=== PATIENT | male | born 1955 | race African-American/Black ===

== ENCOUNTER 2016-08-05 18:07 | Observation (INO) | payer MEDICARE, MEDICAID ==
[~2016-08-05] VITALS: Ht 194.3 cm; Wt 205.5 kg
[~2016-08-05 18:07] MED LIST: BACTRIM DS TABL1 TAB PO; BAYER CHEWABLE81 MG PO; CHLOROTHIAZIDE500 MG PO; CLEOCIN HCL300 MG PO; COLACE100 MG PO; CORDARONE200 MG PO; COREG 3.1253.125 MG PO; DULCOLAX5 MG PO; ENDOCET 10-3251 TAB PO; FERROUS SULFAT325 MG PO; FLORANEX / LACT1 TAB PO; FLORINEF 0.1 M0.1 MG PO; GLUCOTROL ER2.5 MG PO; IPRAT-ALBUT 0.5-3 ML UPD; K-DUR20 MEQ PO; LASIX INJ40 MG/4 ML PO; LASIX40 MG PO; LEVAQUIN500 MG PO; LIDODERM 5 %1 PATCH TD; LISINOPRIL5 MG PO; LOVENOX40 MG/0.4 SQ; MUCINEX DM ER1 EAC1 PO; MYLANTA LIQUID355 ML PO; OMNICEF300 MG PO; PAXIL10 MG PO; PROTONIX40 MG PO; PULMICORT0.5 MG/21 UPD; SYNTHROID125 MCG PO; SYNTHROID300 MCG PO; ULTRAM50 MG PO; ZAROXOLYN5 MG PO; [UNRECOGNIZED DRUG - OTHER]
[2016-08-05 19:32] LABS: BASOPHILS 0.2 % (0.0-2.0); HEMATOCRIT 31.8 % (42.0-54.0); IMMATURE GRANULOCYTES 0.4 % (0-5); MCH 24.9 pg (26.0-34.0); MCHC 31.4 g/dL (31.0-37.0); MCV 79.3 fL (80.0-100.0); MEAN PLATELET VOLUME 11.4 fL (7.4-10.4); MONOCYTES 10.5 % (2-11); NEUTROPHILS 72.9 % (40-80); RBC 4.01 10x6/uL (4.20-6.10); RDW 16.2 % (11.5-14.5); WBC 5.6 10x3/uL (4.8-10.8)
[2016-08-05 19:38] LABS: APPEARANCE CLEAR (CLEAR); BILIRUBIN NEGATIVE (NEGATIVE); COLOR YELLOW (YELLOW); GLUCOSE NEGATIVE (NEGATIVE); KETONE NEGATIVE (NEGATIVE); LEUKOCYTE ESTERASE NEGATIVE (NEGATIVE); NITRITE NEGATIVE (NEGATIVE); PROTEIN NEGATIVE (NEGATIVE); UROBILINOGEN NORMAL (NORMAL)
[2016-08-05 19:47] LABS: ALBUMIN 2.3 g/dL (3.4-5.0); ANION GAP 5.4 mmol/L (8-16); BILIRUBIN - TOTAL 0.47 mg/dL (0.2-1.3); CALCIUM 8.8 mg/dL (8.5-10.1); CARBON DIOXIDE 34.3 mmol/L (21.0-32.0); CREATININE - SERUM 1.8 mg/dL (0.6-1.3); POTASSIUM - SERUM 3.7 mmol/L (3.5-5.1); PROTEIN - SERUM 8.6 g/dL (6.4-8.2)
[2016-08-05 19:57] LABS: PLATELET COUNT 138 10x3/uL (130-400)
[2016-08-05 23:41] VITALS: BP 123/74
[2016-08-06 00:19] VITALS: BP 138/80
--- NOTE | 2016-08-06 03:28 | NUR ---
ASSESSED AT THE TIME PT ARRIVED FROM THE ER VIA STRETCHER. PT SMELLED VERY BAD, A COMBINATION OF UNCLEAN AND WEEPING WOUNDS. AFTER GETTING HIM SETTLED IN BED WE ASSISTED HIM UP TO THE SHOWER AND CLEANED HIM UP. BOTH LEGS HAVE EDEMA AND WOUNDS. THE LEFT SIDE HAS A LATERAL DAYRON SIZE VENOUS STATUS ULCER AND THE RIGHT SIDE HAS A LARGE WOUND WHICH IS IS ABOUT 6 X 8 INCHES. BOTH SIDES ARE DRAINING LIGHT BLOODY FLUIDS. THE WOUNDS ARE CLEANED AND DRIED PLACED ON PADS AND COVERED WITH TOWELS LEFT TO AIR FOR MD TO SEE BEFORE DRESSING. HE IS COUGHING QUIET A BIT AND WANTING COUGH MEDS SO WE WILL ADDRESS MD IN THE AM. THE BED IS LOW, RAILS UP X'S 2 WITH THE CALL LIGHT AT HAND.
[2016-08-06 05:17] VITALS: BP 100/62
--- NOTE | 2016-08-06 07:02 | NUR ---
PT HAS HIS BILLFOLD AND CELL PHONE AT THE BEDSIDE. HE STATED HE HAS A LOT OF MOMEY FOR A BILL THAT IS DUE SHORTLY AND DOSENT WANT TO PUT IT IN THE SAFE. HE STATED HE HAD HIS MONEY STOLEN FROM THE TIME HE GAVE HIS BILLFOLD UP TO [facility] IN THE PAST. IT HAS NOT LEFT HIS SIGHT. WE KEPT IT IN THE BATHROOM WHILE HE SHOWERED AND IT IS IN HIS GOWN POCKET NOW.
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
[2016-08-06 07:41] VITALS: BP 119/76
--- NOTE | 2016-08-06 08:45 | NUR ---
PAGED TO REQUEST PAIN MEDICATION. 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
--- NOTE | 2016-08-06 08:57 | NUR ---
NEW ORDER RECEIVED TO START HIS TRAMADOL 50MG PO Q4PRN FOR PAIN.
--- NOTE | 2016-08-06 09:34 | NUR ---
MEDICATED FOR PAIN AT THIS TIME. NO DISTRESS.
--- NOTE | 2016-08-06 11:22 | NUR ---
WOUND CARE COMPLETED TO BILATERAL LOWER EXTREMITIES AT THIS TIME. RIGHT LOWER LATERAL EXTREMITIY HAS AREA [id number] VENOUS ULCER, LEFT LATERAL LOWER EXTREMITIY WITH AREA 3X3. CLEANSED WITH WOUND CLEANSER, ADPATIC APPLIED, PADDED WITH 4X4 AND WRAPPED WITH KERLIX ON RIGHT LEG WOUND. LEFT LEG WOUND CLEANSED WITH WOUND CLEANSER AND MEPILEX APPLIED. LEFT LATERAL WOUND IS SUPERFICIAL IN DEPTH. BASIC WOUND CARE PROVIDED UNTIL ORDERS RECEIVED.
[2016-08-06 11:23] VITALS: BP 114/64
--- NOTE | 2016-08-06 13:35 | NUR ---
MEDICATED FOR PAIN AT THIS TIME. NO DISTRESS.
--- NOTE | 2016-08-06 14:25 | NUR ---
ULTRASOUND AT BEDSIDE FOR VENOUS DOPPLER. UA TAKEN TO LAB AT THIS TIME.
[2016-08-06 15:24] VITALS: BP 126/87
--- NOTE | 2016-08-06 18:30 | NUR ---
DRESSING CHANGES PROVIDED FOR THE SECOND TIME TO BILATERAL LOWER EXTREMITIES DUE TO DRESSINGS ARE SATURATED. WOUNDS ARE WEEPING. CULTURES OBTAINED DURING THIS DRESSING CHANGE ONCE THE WOUND WAS PROPERLY CLEANSED TO PREVENT ADDED CONTAMINANTS CONTAMINATING SPECIMENS. PATIENT TOLERATED WOUND CARE WELL. NO DISTRESS.
[2016-08-06 19:00] VITALS: BP 129/79
--- NOTE | 2016-08-06 19:38 | NUR ---
RESUMED CARE OF PT, SITTING UP ON SIDE OF BED, DENIES ANY NEEDS, IV-R.AC-SL, [id number], DRESSINGS TO BILATERAL LEG CDI, CALL LIGHT IN REACH, BED IS LOW, SRX-2, WILL CONTINUE TO MONITOR
--- NOTE | 2016-08-06 22:47 | NUR ---
CHANGED DRESSING TO RJignesh ESTEVES
[2016-08-07] VITALS (7 sets, daily range): BP systolic 117–157; BP diastolic 72–92; Ht 194.3 cm; Wt 205.5 kg
--- NOTE | 2016-08-07 03:49 | NUR ---
SLEEPING, CALL LIGHT IN REACH, BED LOW,SRX2
[2016-08-07 05:37] LABS: BASOPHILS 0.2 % (0.0-2.0); EOSINOPHILS 3.7 % (0-7); HEMATOCRIT 33.1 % (42.0-54.0); HEMOGLOBIN 10.4 g/dL (13.5-17.5); IMMATURE GRANULOCYTES 0.6 % (0-5); LYMPHOCYTES 22.8 % (15-50); MCH 24.6 pg (26.0-34.0); MCHC 31.4 g/dL (31.0-37.0); MCV 78.4 fL (80.0-100.0); MEAN PLATELET VOLUME 12.2 fL (7.4-10.4); MONOCYTES 10.3 % (2-11); NEUTROPHILS 62.4 % (40-80); PLATELET COUNT 149 10x3/uL (130-400); RBC 4.22 10x6/uL (4.20-6.10); RDW 16.3 % (11.5-14.5); WBC 5.2 10x3/uL (4.8-10.8)
--- NOTE | 2016-08-07 05:59 | NUR ---
NO CHANGES FROM PREVIOUS ASSESSMENT, CALL LIGHT IN REACH. WILL CONTINUE WITH PLAN OF CARE.
[2016-08-07 06:06] LABS: ANION GAP 10.4 mmol/L (8-16); CALCIUM 8.9 mg/dL (8.5-10.1); CARBON DIOXIDE 32.4 mmol/L (21.0-32.0); CREATININE - SERUM 2.1 mg/dL (0.6-1.3); POTASSIUM - SERUM 3.8 mmol/L (3.5-5.1)
--- NOTE | 2016-08-07 07:30 | NUR ---
RESTING QUIETLY DENIES ANY NEEDS NAD NOTED
--- NOTE | 2016-08-07 07:56 | NUR ---
ASSESSMENT DONE. PT SLEEPING. EASILY AROUSED. A/O. DRESSING TO RT LOWER LEG IS CLEAN, DRY AND INTACT. DENIES NEEDS OR WANTS AT THIS TIME. CALL LIGHT WITH IN REACH. WILL CONT. TO MONITOR.
--- NOTE | 2016-08-07 08:39 | NUR ---
SPOKE TO JUSTYN RN/INFECTION CONTROL NURSE. NOTIFIED HER THAT PT'S LEG WOUND GREW OUT GRAM NEG RODS. WAS ADVISED TO PLACE PT ON TEMPORARY CONTACT ISOLATION UNTIL WE KNOW THAT CULTURE WILL NOT GROW ANYTHING ELSE. PT INFORMED.
--- NOTE | 2016-08-07 11:20 | NUR ---
PT SLEEPING. APPEARS COMFORTABLE. RESP EVEN AND UNLABORED. CALL LIGHT WITH INREACH. WILL CONT. TO MONITOR.
--- NOTE | 2016-08-07 13:35 | NUR ---
DRESSING CHANGED TO RIGHT LOWER EXTREMITY. THIS NURSE CLEANED WOUND WITH WOUND ELECTRONICS DEPARTMENT MANAGER AND PATTED DRY. APPLIED XEROFORN DRESSING TO WOUND BED COVERD WITH 4X4'S AND ABD PAD D/T DRAINAGE. WRAPPED WITH KERLEX AND SECURED WITH TAPE. PT TOLERATED WELL, AND DENIES PAIN AT SITE.
--- NOTE | 2016-08-07 16:25 | NUR ---
WOUND CARE CONSULT: PT HAS VENOUS ULCER TO RIGHT LOWER LEG MEASURING APPROX 7CM X 7CM X 0.7CM IRREGULAR, WET, MACERATED, MUSKY ODOR. CULTURED PER ORDERS. CLEANSED WITH WOUND OLEO HASHER AND RENDERER, PATTED DRY, CULTURED, APPLIED MAXORB AG TO WOUND BED, COVERED WITH 4X4S AND ABD PADS, SECURED WITH KERLIX. VENOUS ULCER TO LEFT LAT LOWER LEG MEASURING 3CM X 3CM X 0.3CM. WOUND BED RED/PINK, MOIST WOUND BED. MACERATED PERIWOUND. APPLIED MAXORB AG TO WOUND BED, COVERED WITH 4X4S AND ABD, WRAPPED TO SECURE WITH KERLIX. PT TOLERATED WELL. WILL CONTINUE TO MONITOR.
--- NOTE | 2016-08-07 17:30 | NUR ---
PT SITTING ON SIDE OF BED. A/O X3. DRESSINGS TO BILATERAL LE CLEAN, DRY AND INTACT. PT DENIES PAIN FROM SITES. DENIES NEEDS AT THIS TIME. CALL LIGHT AND URINAL WITH IN REACH. WILL CONT. TO MONITOR.
--- NOTE | 2016-08-07 19:00 | NUR ---
BEDSIDE REPORT RECIVED, INITIAL ASSESSMENT COMPLETE, PLEASE SEE FLOW SHEETS FOR DETAILS. DENIES PAIN/NEEDS AT THIS TIME, WILL CONTINE TO MONITOR.
--- NOTE | 2016-08-07 21:00 | NUR ---
RESING IN BED, DENIES NEEDS AT THIS TIME, COMPLAINED OF PAIN IN LEG, GAVE ULTRAM ORDERED. WILL CONTINUE TO MONITOR.
--- NOTE | 2016-08-08 01:06 | NUR ---
WATCHING TELEVISION, RESTING IN BED. MOVED SELF UP IN BED WITH SOME ENCOURAGEMENT. EMPTIED URINAL WITH 250ML CONCENTRATED URINE TO CAMODE. DENIES ANY OTHER PAIN/NEEDS AT THIS TIME. UNLABORED BREATHING NOTED. BED LOW AND LOCKED, CALL LIGHT IN REACH. WILL CONTINUE TO MONITOR.
--- NOTE | 2016-08-08 02:46 | NUR ---
AWAKE AND GETTING BATH FROM CABINET PROFESSIONAL'S. NO OTHER NEEDS AT THIS TIME, WILL CONTINUE TO MONITOR.
[2016-08-08 05:05] LABS: BASOPHILS 0.2 % (0.0-2.0); EOSINOPHILS 3.6 % (0-7); HEMATOCRIT 32.2 % (42.0-54.0); HEMOGLOBIN 10.2 g/dL (13.5-17.5); IMMATURE GRANULOCYTES 0.2 % (0-5); LYMPHOCYTES 26.2 % (15-50); MCH 24.8 pg (26.0-34.0); MCHC 31.7 g/dL (31.0-37.0); MCV 78.3 fL (80.0-100.0); MONOCYTES 8.5 % (2-11); NEUTROPHILS 61.3 % (40-80); PLATELET COUNT 161 10x3/uL (130-400); RBC 4.11 10x6/uL (4.20-6.10); RDW 16.2 % (11.5-14.5); WBC 5.3 10x3/uL (4.8-10.8)
[2016-08-08 05:12] VITALS: BP 128/78
[2016-08-08 05:13] LABS: ANION GAP 8.9 mmol/L (8-16); CALCIUM 8.5 mg/dL (8.5-10.1); CARBON DIOXIDE 33.7 mmol/L (21.0-32.0); CREATININE - SERUM 2.1 mg/dL (0.6-1.3); POTASSIUM - SERUM 3.6 mmol/L (3.5-5.1)
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
--- NOTE | 2016-08-08 07:00 | NUR ---
RECEIVED REPORT. ASSUMED CARE OF PATIENT. CALL LIGHT WITHIN REACH. RESTING WITH EYES CLOSED. EASILY AROUSED. REMAINS IN CONTACT ISOLATION AT THIS TIME. DENIES NEEDS AT THIS TIME. NO DISTRESS.
[2016-08-08 08:31] VITALS: BP 129/75
--- NOTE | 2016-08-08 10:05 | NUR ---
PATIENT EXPRESSING INAPPROPRIATE BEHAVIOR TOWARDS THIS NURSE. PATIENT GRABBING NURSE. INSTRUCTED PATIENT DO NOT PLACE HIS HANDS ON THIS FILM PRINTER. VERBALIZED HIS UNDERSTANDING. PATIENT SITTING TO SIDE OF BED AT THIS TIME. NO DISTRESS. THIS FILM PRINTER WAS WAS TURNING IV PUMP OFF AND PATIENT GRABBED THIS NURSES RIGHT SIDE/RIGHT FLANK AREA AND SQUEEZED. NOTIFIED CHARGE NURSE AND WILL SWITCH PATIENTS IF CONTINUES TO BE A PROBLEM.
[2016-08-08 11:38] VITALS: BP 159/76
[2016-08-08 11:42] VITALS: BP 159/76
--- NOTE | 2016-08-08 14:45 | NUR ---
SITTING TO SIDE OF BED. CALL LIGHT WITHIN REACH. NO DISTRESS. ORANGE JUICE PROVIDED. AWAITING PHARMACY TO BRING TUBE OF NEOSPORIN FOR WOUND CARE. NO DISTRESS.
--- NOTE | 2016-08-08 15:15 | NUR ---
WOUND CARE COMPLETED TO BILATERAL LOWER EXTREMITES AT THIS TIME. CALL LIGHT WITHIN REACH. NO DISTRESS. TOLERATED DRESSING CHANGES WELL. RIGHT LOWER LATERAL LEG WITH 10 X 10 AREA, MODERATE AMOUNT OF SEROUS DRAINAGE. LEFT LOWER LATERAL LEG WITH SMALL 3X3 AREA, SCANT BLOODY DRAINAGE. DRESSINGS APPLIED ORDERED.
[2016-08-08 15:51] VITALS: BP 98/72
--- NOTE | 2016-08-08 18:10 | NUR ---
PATIENT RESTING WITH EYES CLOSED IN BED, EASILY AROUSED. PATIENT HAS NOT MENTIONED ANYTHING IN REGARDS TO HIS WALLET OR MONEY. THIS COAL OR ORE CONTROLLER HAS NOT ASKED PATIENT EITHER. SPRAY PAINTER BRAXTON NOTIFIED THAT PATIENT HAS NOT MENTIONED HIS WALLET OR MONEY THE ENTIRE SHIFT HE WAS MAKING STATEMENTS ABOUT IT LAST NIGHT TO HIS NURSE. CALL LIGHT WITHIN REACH. NO DISTRESS.
[2016-08-08 19:00] VITALS: BP 132/99
--- NOTE | 2016-08-08 19:30 | NUR ---
RESTING QUIETLY NAD NOTED DENIES ANY NEEDS OR DISCOMFORT NAD NOTED
[2016-08-09 04:00] VITALS: BP 139/68
[2016-08-09 05:49] LABS: BASOPHILS 0.2 % (0.0-2.0); HEMATOCRIT 32.1 % (42.0-54.0); IMMATURE GRANULOCYTES 0.4 % (0-5); LYMPHOCYTES 26.1 % (15-50); MCH 24.3 pg (26.0-34.0); MCHC 31.2 g/dL (31.0-37.0); MCV 77.9 fL (80.0-100.0); MEAN PLATELET VOLUME 11.7 fL (7.4-10.4); MONOCYTES 8.2 % (2-11); NEUTROPHILS 62.1 % (40-80); PLATELET COUNT 157 10x3/uL (130-400); RBC 4.12 10x6/uL (4.20-6.10); RDW 16.2 % (11.5-14.5)
[2016-08-09 06:11] LABS: ANION GAP 7.8 mmol/L (8-16); CALCIUM 8.7 mg/dL (8.5-10.1); CARBON DIOXIDE 32.5 mmol/L (21.0-32.0); CREATININE - SERUM 1.9 mg/dL (0.6-1.3); POTASSIUM - SERUM 4.3 mmol/L (3.5-5.1)
[2016-08-09 07:39] VITALS: BP 130/83
[2016-08-09 11:38] VITALS: BP 139/76
--- NOTE | 2016-08-09 14:00 | NUR ---
ALERT AND ORIENTED X4. SITTING IN CHAIR. CLEAN WOUNDS ON LEGS BILATERALLY. DRESSING CHANGE PER ORDER. DENIES SOB OR PAIN. VASCULAR ACCESS NURSE RESITE IV RT HAND 20G SUCCESSFUL X1 ATTEMPT. CONTINUE PLAN OF CARE. SINUS RHYTHM ON TELEMETRY. CHAIR LOCKED. CALL LIGHT IN REACH.
--- NOTE | 2016-08-09 14:13 | NUR ---
IV access-#20 gauge IV catheter in left hand x 1 attempt. Myesha Porras RN
[2016-08-09] MEDS ORDERED: CLEOCIN HCL300 MG PO (14:42)
[2016-08-09 15:25] VITALS: BP 128/76
--- NOTE | 2016-08-09 16:09 | NUR ---
Patient Name: TONJA MILLS Admission Status: ER Accout number: [id number] Admission Date: 08-05-2016 : 1955 Admission Diagnosis:PAIN IN RIGHT LEG Attending: ANGEL Current LOS: 4 Anticipated DC Date: 08-09-2016 Planned Disposition: Home with Home Health Primary Insurance: [facility] PLANNED EXTERNAL PROVIDER: [facility] Discharge Planning Comments: * Is the patient Alert and Oriented? Yes 0 * How many steps to enter\\exit or inside your home? 5 0 * PCP ECOLOGIST FRANCISCO MONZON[facility] * Pharmacy [email or web address] 0 * Preadmission Environment Home Alone 0 * ADLs Independent 0 * Equipment BIPAP Nebulizer Oxygen 0 * Other Equipment [facility] - MEDICAL EQUIPMENT PROVIDER 0 * List name and contact numbers for known caregivers / representatives who currently or will assist patient after discharge: QI MILLS, BROTHER, NUMBER UNKNOWN TO PT AT THIS TIME. 0 * Community resources currently utilized Private Duty Care 0 * Please name any agencies selected above. [facility], (MEDICAID) 1 HOUR PER DAY, 5 DAYS PER WEEK, M-F 0 * Additional services required to return to the preadmission environment? Yes * Can the patient safely return to the preadmission environment? Yes 0 * Has this patient been hospitalized within the prior 30 days at any hospital? No 0 CM MET WITH PT IN ROOM TO DISCUSS DISCHARGE PLANNING AND NEEDS. PT REPORTS LIVING AT HOME INDEPENDENTLY AND ALONE. PT HAS BIPAP, NEBULIZER AND HOME OXYGEN ONLY, PROVIDED BY [facility]. PT HAS PERSONAL CARE FROM "SNF" PROVIDED BY MEDICAID SERVICES. PT REPORTS SEEING DR. TILLMAN FOR HIS WOUND CARE ON HIS LEGS. PT UTILIZES MEDICAID TRANSPORT TO GET TO HIS APPOINTMENTS AND SOMETIMES DRIVES OR TAKES A TAXI. CM DISCUSSED AVAILABILITY OF HOME HEALTH, REHAB SERVICES AND MEDICAL EQUIPMENT. PT WILL ACCEPT HOME HEALTH, CHOSE [facility] CHOICE SIGNED. PT REPORTS THE HOSPITAL USUALLY PAYS FOR HIS TAXI SERVICE HOME; CM EXPLAINED THAT THE HOSPITAL HAS LIMITED RESOURCES AND OFFERED A BUS PASS TO PT FOR TRANSPORT HOME TODAY. PT DECLINED AND REPORTS HE WILL FIND HIS OWN WAY HOME. IMPORTANT MESSAGE FROM MEDICARE PROVIDED AND EXPLAINED. CM CALLED [facility], , SPOKE TO GREGORY WHO TOOK REFERRAL AND WILL ACCEPT PT AND CONTACT DR. TILLMAN TO DETERMINE WHAT WOUND CARE MAY BE NEEDED. CM FAXED REFERRAL TO INCLUDE WOUND CARE NOTES FROM [facility] WITH DISCHARGE INFORMATION TO [facility] AT [phone]. PT NOTIFIED. NO FURTHER NEEDS NOTED. Talcer: Rosendo Donnelly
--- NOTE | 2016-08-09 18:15 | NUR ---
ALERT AND ORIENTED X4. SITTING ON SIDE OF BED. DC RT HAND IV TIP INTACT. DENIES SOB OR PAIN. DISCHARGE INSTRUCTIONS. GIVEN VERBALLY AND WRITTEN. WOUND CARE INSTRUCTIONS PROVIDED. DISCHARGE INSTRUCTIONS SIGNED ON CHART. WAITING FOR RIDE. CONTINUE SAFETY PRECAUTIONS.
--- NOTE | 2016-08-09 19:03 | NUR ---
CAB CALLED PER COUNSELING SERVICES DIRECTOR FOR RIDE. VOUCHER GIVEN. ESCORT TO CAB VIA WHEELCHAIR.
--- NOTE | 2016-08-11 14:53 | NUR ---
Patient Name: TONJA MILLS Encounter No: [id number] : 1955 Primary Insurance: [facility] Anticipated DC Date: 08-09-2016 Planned Disposition: Home with Home Health External Planned Provider: [facility] DCP follow-up note: CM RECEIVED CALL FROM SOFIA OF [facility] [email or web address] , THEY WILL NOT ACCEPT PT DUE TO PT WATCHING PORNOGRAPHY AND MAKING INAPPROPRIATE COMMENTS TO NURSING DURING ATTEMPTED CARE AT PT'S HOME. SOFIA WILL TRY TO LOCATE ANOTHER HOME HEALTH AGENCY TO SEE PT AT HOME. AFTER A SHORT TIME, SOFIA CALLED CM AND REPORTED THAT [facility] HAS A MALE NURSE AND WILL TRY TO PROVIDE HOME HEALTH CARE TO PT. CM RECEIVED CALL FROM ARSEN OF [facility] WHO REPORTS THAT DR. TILLMAN'S OFFICE IS CLOSED AND THEY CANNOT GET WOUND CARE ORDERS AND DO NOT HAVE NURSE AVAILABILITY UNTIL SUNDAY. JURGEN ADVISED THAT PT HAS BEEN DOING HIS OWN WOUND CARE IN BETWEEN VISITS TO DR. TILLMAN'S CLINIC PRIOR TO HOSPTIALIZATION WITHOUT HOME HEALTH ASSISTANCE. ARSEN WILL CALL PT AND NOTIFY HIM OF THE DELAY IN HAVING NURSE SEE PT AT HOME AND SCHEDULE VISIT FOR SUNDAY NEXT WEEK WITH PT. Rosendo Donnelly, CASE MANAGEMENT
[2016-08-13 15:08] LABS: AEROBE ID Final report (())
[2016-08-13 15:08] LABS: AEROBE ID Final report (())
[2016-08-13 15:08] LABS: AEROBE ID Final report (())
== END 2016-08-09 19:04 | disposition home or self-care (01) ==
LOC: D.ER 18:07 → D.M2 20:52 → OBSVTIME 08-09 14:55 → D.M2 08-09 19:04
PROVIDERS: Family Medicine; Physician Assistant Medical; ADMIT Family Medicine
DX: I83.019 Varicose veins of right lower extremity with ulcer of unspecified site (principal); I50.21 Acute systolic (congestive) heart failure; I13.0 Hypertensive heart and chronic kidney disease with heart failure and stage 1 through stage 4 chronic kidney disease, or unspecified chronic kidney disease; N18.4 Chronic kidney disease, stage 4 (severe); E03.9 Hypothyroidism, unspecified; J44.9 Chronic obstructive pulmonary disease, unspecified; E66.01 Morbid (severe) obesity due to excess calories; Z95.0 Presence of cardiac pacemaker; Z87.891 Personal history of nicotine dependence; L03.115 Cellulitis of right lower limb; Z68.42 Body mass index [BMI] 45.0-49.9, adult

== ENCOUNTER 2016-12-09 03:29 | Emergency (ER) | payer MEDICARE, MEDICAID ==
[2016-08-07 13:45] VITALS: BMI 48.0
[2016-12-09 04:06] LABS: BASOPHILS 0.2 % (0-2); EOSINOPHILS 1.7 % (0-7); HEMATOCRIT 32.5 % (42.0-54.0); HEMOGLOBIN 10.3 g/dL (13.5-17.5); IMMATURE GRANULOCYTES 0.3 % (0-5); LYMPHOCYTES 13.7 % (15-50); MCHC 31.7 g/dL (31.0-37.0); MCV 78.9 fL (80.0-100.0); MEAN PLATELET VOLUME 10.8 fL (7.4-10.4); MONOCYTES 9.2 % (2-11); NEUTROPHILS 74.9 % (40-80); PLATELET COUNT 137 10x3/uL (130-400); RBC 4.12 10x6/uL (4.20-6.10); RDW 17.2 % (11.5-14.5); WBC 6.1 10x3/uL (4.8-10.8)
[2016-12-09 04:19] LABS: ALBUMIN 2.9 g/dL (3.4-5.0); ANION GAP 8.8 mmol/L (8-16); BILIRUBIN - TOTAL 0.46 mg/dL (0.2-1.3); CALCIUM 8.7 mg/dL (8.5-10.1); CARBON DIOXIDE 28.8 mmol/L (21.0-32.0); CREATININE - SERUM 1.9 mg/dL (0.6-1.3); POTASSIUM - SERUM 3.6 mmol/L (3.5-5.1); PROTEIN - SERUM 9.1 g/dL (6.4-8.2)
[2016-12-09 05:16] LABS: APPEARANCE CLEAR (CLEAR); BILIRUBIN NEGATIVE (NEGATIVE); COLOR YELLOW (YELLOW); GLUCOSE NEGATIVE (NEGATIVE); KETONE NEGATIVE (NEGATIVE); LEUKOCYTE ESTERASE NEGATIVE (NEGATIVE); NITRITE NEGATIVE (NEGATIVE); PROTEIN NEGATIVE (NEGATIVE); UROBILINOGEN NORMAL (NORMAL)
== END 2016-12-09 06:38 | disposition home or self-care (01) ==
LOC: D.ER 03:29
PROVIDERS: Emergency Medicine
DX: R53.1 Weakness (principal); I50.9 Heart failure, unspecified; I10 Essential (primary) hypertension; Z95.0 Presence of cardiac pacemaker; K27.9 Peptic ulcer, site unspecified, unspecified as acute or chronic, without hemorrhage or perforation

== ENCOUNTER 2017-02-28 23:21 | Inpatient (IN) | payer MEDICARE, MEDICAID ==
[~2017-02-28] VITALS: Ht 194.3 cm; Wt 206.4 kg
[2017-03-01 00:06] LABS: HEMATOCRIT 32.9 % (42.0-54.0); HEMOGLOBIN 10.5 g/dL (13.5-17.5); LYMPHOCYTES 25.2 % (15-50); MCH 24.8 pg (26.0-34.0); MCHC 31.9 g/dL (31.0-37.0); MCV 77.8 fL (80.0-100.0); MEAN PLATELET VOLUME 10.7 fL (7.4-10.4); NEUTROPHILS 65.7 % (40-80); PLATELET COUNT 138 10x3/uL (130-400); RBC 4.23 10x6/uL (4.20-6.10); RDW 19.2 % (11.5-14.5); WBC 4.6 10x3/uL (4.8-10.8)
[2017-03-01 00:23] LABS: ALBUMIN 2.5 g/dL (3.4-5.0); ANION GAP 8.5 mmol/L (8-16); BILIRUBIN - TOTAL 0.3 mg/dL (0.2-1.3); CALCIUM 8.3 mg/dL (8.5-10.1); CARBON DIOXIDE 33.3 mmol/L (21.0-32.0); CREATININE - SERUM 1.5 mg/dL (0.6-1.3); POTASSIUM - SERUM 3.8 mmol/L (3.5-5.1); PROTEIN - SERUM 8.7 g/dL (6.4-8.2)
[2017-03-01 02:06] LABS: APPEARANCE CLOUDY (CLEAR); BILIRUBIN NEGATIVE (NEGATIVE); COLOR YELLOW (YELLOW); GLUCOSE NEGATIVE (NEGATIVE); KETONE NEGATIVE (NEGATIVE); LEUKOCYTE ESTERASE TRACE (NEGATIVE); NITRITE NEGATIVE (NEGATIVE); PROTEIN 1+ mg/dL (NEGATIVE); SPECIFIC GRAVITY 1.015 (1.005-1.020); UROBILINOGEN NORMAL (NORMAL)
[2017-03-01 02:08] LABS: BACTERIA MANY /hpf (NONE SEEN); EPITHELIAL CELLS 0-5 /hpf (0-5); RED CELLS - URINE 0-5 /hpf (0-5)
--- NOTE | 2017-03-01 02:30 | NUR ---
RECEIVED FROM ER, PT HAS DRESSING TO BILATERAL LEGS, TELEMTRY IS ON. IV-LAC, PT IS CONFUSED, WILL DO ADMISSION AND MEDS FROM PAPER WORK, BED IS LOW, SRX2, BED ALARM IS ON, WILL CONTINUE TO MONITOR
[2017-03-01] MEDS ORDERED: PAROXETINE HCL10 MG PO (03:31)
[2017-03-01] MEDS ORDERED: GLUCOTROL ER2.5 MG PO (03:32)
[2017-03-01] MEDS ORDERED: CHLOROTHIAZIDE500 MG PO (03:33)
--- NOTE | 2017-03-01 04:30 | NUR ---
HVAC R INSTRUCTOR AT BEDSIDE TO OBTAIN VITALS, CALL LIGHT IN REACH. WILL CONTINUE TO MONITOR.
[2017-03-01 05:38] VITALS: BP 117/79
[2017-03-01 06:47] VITALS: Ht 194.3 cm; Wt 206.4 kg
--- NOTE | 2017-03-01 07:26 | NUR ---
PT LAYING TO LEFT SIDE SLEEPING NO S/S DISTRESS NOTED RR EVEN AND UNLABORED WILL CONT TO MONITOR
[2017-03-01 08:00] VITALS: BP 105/58
[2017-03-01 08:07] LABS: HEMOGLOBIN A1C 7.3 % (4.8-6.0)
--- NOTE | 2017-03-01 09:59 | NUR ---
construction carpenters helper was by Primary RN to look at pt d/t chronic non-healing wound to right lateral lower leg. He is a wound clinic pt at [facility] Both lower extremities are edematous, with thick hardened skin. His feet are puffy (look "boxy") and there is a moldy odor. The left lower leg has an open ulceration measuring approx 10cm x 10cm extending from the lateral to posterior leg. Serous exudate is moderate to large amount. Recommend using Maxorb AG to open wound. Will continue monitoring.
--- NOTE | 2017-03-01 11:08 | NUR ---
PT R LEG LYMPHADEMA SORES CLEANSED WITH WOUND CLEANSER. APPLIED ADAPTIC AND GAUZE AND WRAPPED IN CURLEX.
[2017-03-01 12:00] VITALS: BP 140/89
--- NOTE | 2017-03-01 12:13 | NUR ---
PT SITTING UP IN BED WAITING ON LUNCH DENIES NEEDS WILL CONT TO MONITOR
--- NOTE | 2017-03-01 15:17 | NUR ---
Patient Name: TONJA MILLS Admission Status: ER Accout number: [id number] Admission Date: 03-01-2017 : 1955 Admission Diagnosis: Attending: GÉNESIS Current LOS: 1 Anticipated DC Date: Planned Disposition: Home Primary Insurance: [facility] Discharge Planning Comments: * Is the patient Alert and Oriented? Yes 0 * How many steps to enter\\exit or inside your home? 5 0 * PCP AYSHA MONZON 0 * Pharmacy [facility] 0 * Preadmission Environment Home Alone 0 * ADLs Independent 0 * Equipment BIPAP Other Oxygen Walker 0 * Other Equipment STATIONARY/HOME OXYGEN ELECTRIC WHEELCHAIR [facility] - MEDICAL EQUIPMENT PROVIDER 0 * List name and contact numbers for known caregivers / representatives who currently or will assist patient after discharge: QI MILLS, BROTHER, 0 * Community resources currently utilized Other 0 * Please name any agencies selected above. WOUND CLINIC WITH DR. TILLMAN EVERY TWO WEEKS 0 * Additional services required to return to the preadmission environment? No 0 * Can the patient safely return to the preadmission environment? Yes 0 * Has this patient been hospitalized within the prior 30 days at any hospital? No 0 CM RECEIVED ORDER FOR DISCHARGE PLANNING. CM MET WITH PT IN ROOM TO DISCUSS DISCHARGE PLANNING AND NEEDS. PT REPORTS LIVING AT HOME INDEPENDENTLY AND ALONE. PT HAS BIPAP, OXYGEN AT HOME ONLY AND HE USES " NEEDED", WALKER WITH SEAT FROM A FAMILY MEMBER AND AN ELECTRIC WHEELCHAIR. PT USES [facility] FOR MEDICAL EQUIPMENT. PT ASKED CM FOR A NEW WALKER; PT EXPLAINED HE ASKED FOR ONE AND WAS TOLD HE COULD NOT HAVE ONE BECAUSE HE HAS AN ELECTRIC WHEELCHAIR. CM EXPLAINED THAT HE COULD PAY FOR ONE AND THAT INSURANCE WILL NOT PURCHASE IT FOR HIM SINCE HE HAS THE ELECTRIC WHEELCHAIR. PT IS NOT WILLING TO BUY ONE AT HIS EXPENSE. PT HAS NO OUTSIDE SERVICES ASSISTING IN THE HOME. PT DOES NOT USE MEDICAID TRANSPORATION; PT HAS A TRUCK THAT HE DRIVES. CM DISCUSSED AVAILABILITY OF HOME HEALTH, REHAB SERVICES AND MEDICAL EQUIPMENT. PT IS THINKING OF GOING BACK TO OUTPATIENT PHYSICAL THERAPY SERVICES AT [facility] AGAIN BUT HAS NOT DECIDED. PT DENIES DISCHARGE NEEDS AT THIS TIME, REPORTS HE WILL CALL A FRIEND TO PICK HIM UP FOR DISCHARGE HOME. CHART REVIEW INDICATES THAT CM WAS NOT ABLE TO FIND ANY HOME HEALTH AGENCY TO SEE PT LAST YEAR AFTER HOSPITALIZATION OTHER THAN [facility] DUE TO HOME HEALTH REPORTING PT BEING INAPPROPRIATE WITH NURSING STAFF IN THE HOME (MAKING COMMENTS, WATCHING PORNOGRAPY WHILE NURSE IN THE HOME.) [facility] WAS NEVER ABLE TO SUCCESSFULLY ADMIT PT WITH MALE NURSE PT WAS NEVER LOCATED AT HOME FOR THE ADMIT. CM WILL FOLLOW AND ASSIST NEEDED. Quality Cloth Tester: Rosendo Donnelly
--- NOTE | 2017-03-01 15:27 | NUR ---
PT SITTING UP IN BED DENIES NEEDS WILL CONT TO MONITOR
[2017-03-01 16:00] VITALS: BP 130/74
--- NOTE | 2017-03-01 17:04 | NUR ---
PT IS SINUS RHYTHM 87 BPM ON TELE
--- NOTE | 2017-03-01 18:44 | NUR ---
PT SITTING UP ON SIDE OF BED DENIES NEEDS
[2017-03-01 19:00] VITALS: BP 128/91
[2017-03-02] VITALS: BP 134/93
[2017-03-02 04:00] VITALS: BP 108/65
[2017-03-02 04:33] LABS: BASOPHILS 0 % (0-2); EOSINOPHILS 2.3 % (0-7); HEMOGLOBIN 11.8 g/dL (13.5-17.5); IMMATURE GRANULOCYTES 0.2 % (0-5); LYMPHOCYTES 21.2 % (15-50); MCHC 31.9 g/dL (31.0-37.0); MCV 78.4 fL (80.0-100.0); MONOCYTES 7.5 % (2-11); NEUTROPHILS 68.8 % (40-80); PLATELET COUNT 157 10x3/uL (130-400); RBC 4.72 10x6/uL (4.20-6.10); RDW 18.2 % (11.5-14.5); WBC 5.6 10x3/uL (4.8-10.8)
[2017-03-02 05:27] LABS: ALBUMIN 2.8 g/dL (3.4-5.0); ANION GAP 8.1 mmol/L (8-16); BILIRUBIN - TOTAL 0.36 mg/dL (0.2-1.3); CALCIUM 8.8 mg/dL (8.5-10.1); CARBON DIOXIDE 32.3 mmol/L (21.0-32.0); CREATININE - SERUM 1.6 mg/dL (0.6-1.3); MAGNESIUM - SERUM 1.9 mg/dL (1.8-2.4); PHOSPHOROUS 3.8 mg/dL (2.5-4.9); POTASSIUM - SERUM 3.4 mmol/L (3.5-5.1); PROTEIN - SERUM 10.1 g/dL (6.4-8.2)
--- NOTE | 2017-03-02 07:10 | NUR ---
PT LAYING TO LEFT SIDE SLEEPING RR EVEN AND UNLABORED NO S/S DISTRESS NOTED WILL CONT TO MONITOR
[2017-03-02 08:25] VITALS: BP 126/67
--- NOTE | 2017-03-02 10:24 | CN ---
PATIENT NAME:TONJA MILLS MEDICAL RECORD: [id number] : [birth year] LOCATION:D. D.2125 ADMIT DATE: 03/01/17 ACCOUNT: [id number] CONSULTING PHYSICIAN: FINA MCGRAW MD REFERRING PHYSICIAN: RACHEL ENCARNACION DO DATE OF CONSULTATION: 03/01/2017 HISTORY OF PRESENT ILLNESS: A 61-year-old gentleman with a cardiovascular history, has history of pacemaker placement. LV systolic function had been preserved in the past. He has pulmonary hypertension, probably related to obesity, obstructive sleep apnea, etc., admitted with constitutional symptomatology, fatigue, tiredness, vague chest pain, dyspnea, really a poor historian. We are asked to see him concerning his cardiovascular status. PAST MEDICAL HISTORY: Includes: 1. History of hypertension. 2. Hyperlipidemia. 3. Sick sinus syndrome, status post pacemaker placement. 4. Diabetes mellitus. ALLERGIES: PENICILLIN AND PORK DERIVATIVES. MEDICATIONS: Typically include amiodarone 200 mg p.o. daily, lisinopril 5 mg p.o. daily, aspirin 81 mg daily, paroxetine 10 mg daily, tramadol q. 6 p.r.n., Diuril 500 mg p.o. daily, Lasix 40 b.i.d., Synthroid 250 mcg 1:03 half tablet daily and glipizide 2.5 daily. SOCIAL HISTORY: Unobtainable due to patient factors. REVIEW OF SYSTEMS: Unobtainable currently due to patient factors. PHYSICAL EXAMINATION: GENERAL: Somewhat unkempt gentleman, in no acute distress. VITAL SIGNS: Blood pressure 105/58, pulse 84 and regular. HEENT: Normocephalic and atraumatic. NECK: No JVD or bruit. HEART: Regular, questionable S4 gallop. LUNGS: Fair air excursion. ABDOMEN: Soft, nontender. EXTREMITIES: Pulses are decreased 1+. There is 2+ edema IMPRESSION: At this point in time, restart cardiac medications, compliance is questionable in the past. We agree with echocardiographic study, we will interrogate pacemaker as well. Further recommendations based on the above. TRANSINT:[id number] Voice Confirmation ID: [id number] DOCUMENT ID: [id number] CONSULT REPORT [id number] GENETONJA FINA MURPHY MD at 1024 CC: [id number] DICTATION DATE: 03/01/17 0841 WAIST FITTER: 03/01/17 1301 ADM IN [facility] [address] [id number]
[2017-03-02 12:04] VITALS: BP 114/77
--- NOTE | 2017-03-02 13:55 | NUR ---
Nutrition education: RDN provided pt with DMT2 printed diet information and answered questions. RDN following.
[2017-03-02 14:30] VITALS: BP 117/78
[2017-03-02 17:08] LABS: APPEARANCE CLEAR (CLEAR); BILIRUBIN NEGATIVE (NEGATIVE); COLOR YELLOW (YELLOW); GLUCOSE NEGATIVE (NEGATIVE); KETONE NEGATIVE (NEGATIVE); LEUKOCYTE ESTERASE NEGATIVE (NEGATIVE); NITRITE NEGATIVE (NEGATIVE); PROTEIN NEGATIVE (NEGATIVE); SPECIFIC GRAVITY 1.015 (1.005-1.020); UROBILINOGEN NORMAL (NORMAL)
--- NOTE | 2017-03-02 18:13 | NUR ---
PT SITTING UP ON SIDE OF BED DENIES NEEDS
[2017-03-02 20:00] VITALS: BP 115/72
--- NOTE | 2017-03-02 20:33 | NUR ---
SITTING ON SIDE OF BED. BOTH FEET WRAPPED IN DRESSINGS THAT ARE DATED TODAY. VERY STRONG ODOR IN ROOM. PT CRACKING JOKES, ASKING FOR ADDITIONAL FOOD AND DRINKS TO EAT. SR PER TELEMETRY. NONLABORED RESPIRATIONS ON ROOM AIR. SALINE LOCK TO LEFT A/C S/L. SEE ASSESSMENT AND MONITOR.
--- NOTE | 2017-03-02 23:20 | NUR ---
BEDTIME MEDS GIVEN. PT SITTING ON SIDE OF BED. REFUSED CHRONULAC. STATES HE HAS GONE TO THE BATHROOM ENOUGH FOR ONE DAY.
--- NOTE | 2017-03-03 03:14 | NUR ---
ONCE PATIENT WENT TO BED, WAS ABLE TO REMOVE THE OLD/WET DRESSING TO RIGHT LOWER LEG. STRONG/PUNGENT ODOR AND YELLOW DRAINAGE. CLEANSED ENTIRE LEG/AND FOOT WITH SOAP AND WATER. THEN CLEANSED WITH WOUND CLEANSER. WET TO DRY ON LARGE OPEN WOUND, WRAPPED WITH KERLIX ANS SECURED ENTIRE DRESSING WITH STOCKINET. ALSO CLEANSED BETWEEN HIS TOES BECAUSE PT ACCUSED NURSE OF NOT DOING IT, EVEN WHEN HIS ENTIRE FOOT/TOES WERE SCRUBBED WITH SOAP AND WATER. PT THEN MADE REMARKS THAT HE IS ALWAYS "PUT OFF" WHEN IT COMES TO RECIEVING CARE. GAS LEAK INSPECTOR HELPER IS CURRENTLY IN ROOM TRYING TO GET PATIENT TO LET HER KNOW WHEN HE WANTED TO RECIEVE HIS BATH. PT JUST RAMBLING ON IN COVERSATION, NOT GIVING GAS LEAK INSPECTOR HELPER AN ANSWER.
[2017-03-03 04:00] VITALS: BP 99/56
[2017-03-03 05:17] LABS: ALBUMIN 2.5 g/dL (3.4-5.0); ANION GAP 6.3 mmol/L (8-16); BILIRUBIN - TOTAL 0.25 mg/dL (0.2-1.3); CALCIUM 8.6 mg/dL (8.5-10.1); CARBON DIOXIDE 34.5 mmol/L (21.0-32.0); CREATININE - SERUM 1.6 mg/dL (0.6-1.3); MAGNESIUM - SERUM 1.9 mg/dL (1.8-2.4); POTASSIUM - SERUM 3.8 mmol/L (3.5-5.1); PROTEIN - SERUM 8.9 g/dL (6.4-8.2)
[2017-03-03 05:17] LABS: BASOPHILS 0.2 % (0-2); HEMATOCRIT 34.5 % (42.0-54.0); HEMOGLOBIN 10.8 g/dL (13.5-17.5); IMMATURE GRANULOCYTES 0.5 % (0-5); MCH 24.6 pg (26.0-34.0); MCHC 31.3 g/dL (31.0-37.0); MCV 78.6 fL (80.0-100.0); MONOCYTES 7.5 % (2-11); NEUTROPHILS 60.8 % (40-80); PLATELET COUNT 158 10x3/uL (130-400); RBC 4.39 10x6/uL (4.20-6.10); RDW 18.4 % (11.5-14.5); WBC 4.4 10x3/uL (4.8-10.8)
[2017-03-03 05:19] LABS: PHOSPHOROUS 4.8 mg/dL (2.5-4.9)
[2017-03-03 08:00] VITALS: BP 126/59
--- NOTE | 2017-03-03 08:20 | NUR ---
ASSESSMENT DONE. DENIES NEEDS.
--- NOTE | 2017-03-03 10:21 | NUR ---
UP SOB WITH CALL LIGHT IN REACH. WILL MONITOR NEEDS.
[2017-03-03 12:00] VITALS: BP 122/58
[2017-03-03 16:00] VITALS: BP 108/74
--- NOTE | 2017-03-03 17:00 | NUR ---
WITHOUT CHANGES OR DISTRESS NOTED AT THIS TIME. DENIES NEEDS AT THIS TIME.
[2017-03-03 19:00] VITALS: BP 95/59
--- NOTE | 2017-03-03 20:17 | NUR ---
INITIAL ROUNDS COMPLETED AT 1910 HRS. PT UPSET THAT HE WAS BROUGHT ONLY WATER AT THAT TIME. BERATED THIS NURSE FOR BRINGING WATER AND NOT ANYTHING ELSE. INFORMED PT THAT EVERYONE RECEIVED A GLASS OF WATER DURING INITIAL ROUNDS UNLES NPO OR NO FREE WATER. PT THEN DEMANDED 2 ICE CREAMS AND A COKE. ICE CREAMS AND COKE BROUGHT TO PT. ASSESSMENT COMPLETED AT 195 HRS. VSS. SR PER CM HR 73. IV TO LAC SL. LUNGS DIMINISHED IN BASES BILAT. 3-4+ PITTNG EDEMA TO FEET. COMPRESSION STOCKING NOTED TO LOWER L LEG. DRESSING TO R LOWER LEG CLEAN, DRY AND INTACT. WALKER AT BEDSIDE. CALL LIGHT WITHIN REACH.
--- NOTE | 2017-03-03 22:11 | NUR ---
PM MEDS GIVEN. ULTRAM 50MG PO GIVEN FOR C/O LEG PAIN. PT VERY UNCOOPERATIVE DURING R LEG DRESSING CHANGE. BELLERGERENT TOWARDS REHABILITATION WORKER. WOUND TO LOWER R LEG CLEANED WITH WOUND CLINICAL TRIAL LEADER AND PATTED DRY. ADAPTIC APPLIED AND COVERED WITH 4X4'S AND KERLIX. WOUND APPROX 20CM X 10CM X 5 CM, NO DRAINAGE. PM MEDS GIVEN. SANDWICH GIVEN PER REQUEST. WILL CONTINUE TO MONITOR. SR UP X2, CALL LIGHT WITHIN REACH.
[2017-03-04] VITALS: BP 118/80
--- NOTE | 2017-03-04 00:06 | NUR ---
PT AWAKE; DENIES ANY DISCOMFORT. WILL CONTINUE TO MONITOR. CALL LIGHT WITHIN REACH.
--- NOTE | 2017-03-04 02:08 | NUR ---
PT RESTING WITH EYES CLOSED. RESP EVEN AND REGULAR. SR UP X2, CALL LIGHT WITHIN REACH.
[2017-03-04 04:00] VITALS: BP 117/65
--- NOTE | 2017-03-04 04:04 | NUR ---
ULTRAM 50MG PO GIVEN FOR C/O HUNTER. WILL CONTINUE TO MONITOR.
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
--- NOTE | 2017-03-04 07:17 | NUR ---
ASSESSMENT DONE. DENIES NEEDS.
[2017-03-04 08:00] VITALS: BP 104/59
--- NOTE | 2017-03-04 09:39 | NUR ---
SITTING UP SOB WITH CALL LIGHT IN REACH. NO NEEDS VOICED AT THIS TIME. WILL CONT. PLAN OF CARE.
[2017-03-04 16:00] VITALS: BP 129/66
--- NOTE | 2017-03-04 17:29 | NUR ---
WITHOUT CHANGES OR DISTRESS NOTED AT THIS TIME. DENIES NEEDS.
[2017-03-04 20:00] VITALS: BP 106/69
--- NOTE | 2017-03-04 20:07 | NUR ---
INITIAL ROUNDS COMPLETED AT 1920 HRS. PT DENIED ANY DISCOMFORT. ASSESSMENT COMPLETED AT 1954 HRS. SR PER CM HR 79. IV TO LAC SL. LUNGS DIMINISHED IN BASES BILAT. 4+ EDEMA NOTED TO BILAT LOWER LEGS. LYMPHODEMA NOTED TO LOWER LAGS. DRESSING TO R LOWER LEG CLEAN, DRY AND INTACT. COLA AND ICE C FRANCIS X2 GIVEN PER REQUEST. WILL CONTINUE TO MONITOR. SR UP X2, CALL LIGHT WITHIN REACH.
--- NOTE | 2017-03-04 22:14 | NUR ---
PM MEDS GIVEN UNCLUDING ULTRAM 50MG FOR C/O LEG PAIN. PT STATING THAT THERE ARE NO SANDWICHES FOR HIM BECAUSE [employer] CNAS HID THEM FROM HIM. REINFORCED TO PT THAT THE CNAS DID NOT HIDE THE SANDWICHES. PT THEN STATED THEY DID BECAUSE THEY ARE OUT TO GET HIM. AURELIOH TRAY BROUGHT TO PT. WILL CONTINUE TO MONITOR.
--- NOTE | 2017-03-05 00:30 | NUR ---
PT AWAKE, DENIES ANY DISCOMFORT. ASSISTED PT IN BED FOR COMFORT. WILL CONTINUE TO MONITOR. SR UP X2, CALL LIGHT WITHIN REACH.
--- NOTE | 2017-03-05 02:43 | NUR ---
PT RESTING WITH EYES CLOSED. RESP EVEN AND REGULAR. SR UP X2,CALL LIGHT WITHIN REACH.
[2017-03-05 04:00] VITALS: BP 108/72
--- NOTE | 2017-03-05 05:03 | NUR ---
ULTRAM 50MG PO GIVEN FOR C/O CHRONIC LEG PAIN. WILL CONTINUE TOMONITOR.
--- NOTE | 2017-03-05 06:15 | NUR ---
VSS THROUGHOUT NIGHT. SR PER CM. PT STATED ULTRAM CONTROLLED PAIN. NEEDS MET; WILL CONTINUE TO MONITOR.
[2017-03-05 08:00] VITALS: BP 105/61
[2017-03-05] MEDS ORDERED: FERROUS SULFAT325 MG PO (08:08)
[2017-03-05] MEDS ORDERED: CORDARONE200 MG PO (08:08)
[2017-03-05] MEDS ORDERED: LISINOPRIL5 MG PO (08:10)
--- NOTE | 2017-03-05 10:57 | NUR ---
Patient Name: TONJA MILLS Admission Status: ER Accout number: [id number] Admission Date: 03-01-2017 : 1955 Admission Diagnosis:SHORTNESS OF BREATH Attending: ANGEL Current LOS: 4 Anticipated DC Date: 03-05-2017 Planned Disposition: Home WITH HOME HEALTH Primary Insurance: [employer] PLANNED EXTERNAL PROVIDER: [facility] Discharge Planning Comments: CM RECEIVED DISCHARGE ORDER WITH HOME HEALTH ORDER. CM MET WITH PT IN ROOM TO DISCUSS DISCHARGE NEEDS. PT REPORTS HE WILL ACCEPT HOME HEALTH. CM EXPLAINED THAT NO HOME HEALTH OTHER THAN [facility] WILL ACCEPT PT FOR HOME SERVICES. PT WILL ACCEPT [facility], CHOICE SIGNED. IMPORTANT MESSAGE FROM MED[employer] PROVIDED AND EXPLAINED. PT REPORTS THAT HE WILL BE GOING HOME BY TAXI. CM ASKED PT IF HE HAD FUNDS TO PAY FOR THE TAXI, PT STATES THAT "THEY" TOLD HIM THE HOSPITAL IS PROVIDING A TAXI HOME TODAY. PT REPORTS THE HOSPITAL GAVE HIM A TAXI THE LAST TIME HE WAS HERE. CM DISCUSSED DEVELOPING A PERSONAL SUPPORT SYSTEM TO ASSIST PT IN TIMES OF NEED. CM EXPLAINED VERY LIMITED RESOURCES AVAILABLE IN THE HOSPITAL AND COMMUNITY. CM ASKED IF PT HAD FRIENDS OR FAMILY TO CALL. PT DID NOT SAY ANYTHING. CM ASKED PT IF HE HAD CERTIFIED HIMSELF WITH MEDICAID TRANSPORTATION, PT STATED "YEA, CHECK WITH THEM." CM CALLED [employer] TRANSPORTATION, , SPOKE TO EMI AND SCHEDULED TRANSPORATION HOME TODAY, [facility] WILL CALL NURSES STATION JUST PRIOR TO ARRIVAL TO [employer] PT. CM CALLED [facility], , SPOKE TO [facility] AND PROVIDED REFERRAL. [facility] REPORTED THEY WILL EVALUATE REFERRAL AND CALL CM BACK, [facility] SEE'S NO REASON THEY WOULD NOT ACCEPT PT FOR HOME HEALTH. [facility] WILL CALL CM BACK IF [facility] IS NOT ABLE TO ACCEPT PT. CM FAXED REFERRAL TO [facility] AT [phone]. CM SPOKE TO PT, DISCUSSED ABOVE. PT STATES THAT HE NEEDS HIS CLOTHES WASHED TO WEAR HOME. CM EXPLAINED THAT THE HOSPTIAL IS NOT WASHING HIS CLOTHES. PT STATED HE NEEDS CLOTHES TO WEAR, CM POINTED OUT SCRUBS THAT HAD BEEN PROVIDED IN THE ROOM. PT THEN STATED HE NEEDS TO TAKE A SHOWER LATER TODAY AND THE DOCTOR IS COMING TO SEE HIM THIS AFTERNOON. CM POINTED OUT THAT THE SHOWER IS AVAILABLE IN HIS ROOM NOW AND INFORMED PT THAT THE DOCTOR IS NOT COMING TO SEE HIM AGAIN, THAT THE DISCHARGE IS COMPLETED AND THE NURSE WILL GO OVER DISCHARGE INSTRUCTIONS WITH PT FOR DISCHARGE HOME. PT COMPLAINED THAT "THIS IS BECAUSE I AM [employer]OSE [place]." CM ASKED WHAT PT MEANT, PT DID NOT EXPLAIN AND INFORMED CM " YOU KNOW WHAT I MEAN." CM INFORMED PT THAT CM DID NOT KNOW WHAT PT MEANT AND EXPLAINED THAT HAS ARRANGED PT'S TRANSPORTION HOME ASKED BY PT, IF PT DOES NOT WANT THE [facility] MEDICAID BUS, CM COULD PROVIDE A BUS PASS OR PT CAN PURCHASE A TAXI HIMSELF OR CALL A FRIEND / FAMILY MEMBER. CM OFFERED TO CANCEL THE [facility] BUS AND TO ASSIST PT WITH CALLING A FAMILY MEMBER OR FRIEND. PT COMPLAINED ABOUT HIS CLOTHES BEING DIRTY AND NEEDING WASHED. CM INFORMED PT THAT THE HOSPTIAL WAS NOT WASHING HIS CLOTHES; CM CAUTIONED PT THAT NOW IS THE TIME TO GET READY TO GO SO THAT HE WILL BE READY WHEN [facility] ARRIVES. CM NOTIFIED BEDSIDE NURSE. Golf Course Laborer: Rosendo [email or web address]
== END 2017-03-05 12:25 | disposition home health service (06) | DRG 291 ==
LOC: D.ER 23:21 → D.M2 03-01 01:31
PROVIDERS: Emergency Medicine; Family Medicine; ADMIT Family Medicine
DX: I11.0 Hypertensive heart disease with heart failure (principal); G93.40 Encephalopathy, unspecified; I50.9 Heart failure, unspecified; E78.5 Hyperlipidemia, unspecified; Z95.0 Presence of cardiac pacemaker; E11.9 Type 2 diabetes mellitus without complications; E66.01 Morbid (severe) obesity due to excess calories; E03.9 Hypothyroidism, unspecified; J44.9 Chronic obstructive pulmonary disease, unspecified; D64.9 Anemia, unspecified; I87.8 Other specified disorders of veins; Z87.891 Personal history of nicotine dependence

== ENCOUNTER 2017-04-07 18:34 | Emergency (ER) | payer MEDICARE, MEDICAID ==
[~2017-04-07 18:34] MED LIST changes: +PAROXETINE HCL10 MG PO
[2017-04-07 19:11] LABS: BASOPHILS 0.2 % (0-2); EOSINOPHILS 0.9 % (0-7); HEMOGLOBIN 10.7 g/dL (13.5-17.5); IMMATURE GRANULOCYTES 0.2 % (0-5); LYMPHOCYTES 21.3 % (15-50); MCH 25.5 pg (26.0-34.0); MCHC 32.4 g/dL (31.0-37.0); MCV 78.6 fL (80.0-100.0); MONOCYTES 10.2 % (2-11); NEUTROPHILS 67.2 % (40-80); RDW 18.8 % (11.5-14.5); WBC 5.3 10x3/uL (4.8-10.8)
[2017-04-07 19:34] LABS: PLATELET COUNT 113 10x3/uL (130-400)
[2017-04-07 19:37] LABS: ALBUMIN 2.7 g/dL (3.4-5.0); ALKALINE PHOSPHATASE 51 U/L (46-116); ALT (SGPT) 16 U/L (10-68); BILIRUBIN - TOTAL 0.41 mg/dL (0.2-1.3); CALC OSMOLALITY 277 mosm/kg (275-300); CALCIUM 8.3 mg/dL (8.5-10.1); CARBON DIOXIDE 31.1 mmol/L (21.0-32.0); CHLORIDE - SERUM 105 mmol/L (98-107); CREATININE - SERUM 1.4 mg/dL (0.6-1.3); GLUCOSE 90 mg/dL (74-106); POTASSIUM - SERUM 3.5 mmol/L (3.5-5.1); PROTEIN - SERUM 8.3 g/dL (6.4-8.2); SODIUM 139 mmol/L (136-145); UREA NITROGEN 13 mg/dL (7-18); eGFR NON AFRICAN AMERICAN 55 mL/min (90-120)
[2017-04-07 19:48] LABS: CKMB 1.7 U/L (0.0-3.6); CREATINE KINASE 302 UL (21-232)
[2017-04-07 19:49] LABS: TROPONIN-I < 0.017 ng/mL (0.000-0.060)
[2017-04-07 20:59] LABS: AMYLASE - SERUM 47 U/L (25-115); LIPASE 56 U/L (73-393); PRO BNP 1074 pg/mL (0-125)
== END 2017-04-07 23:07 | disposition home or self-care (01) ==
LOC: D.ER 18:34
PROVIDERS: Emergency Medicine; Family Medicine
DX: R06.00 Dyspnea, unspecified (principal); G47.30 Sleep apnea, unspecified; R59.0 Localized enlarged lymph nodes